=== PATIENT | female | born 1975 | race Caucasian/White ===

== ENCOUNTER 2016-09-19 09:02 | Emergency (ER) | payer OTHER ==
[~2016-09-19] VITALS: Ht 162.6 cm; Wt 62.6 kg
[~2016-09-19 09:02] MED LIST: ALPRAZOLAM; AMOXICILLIN; ASPIRIN EC81 M1; BACTROBAN CREAM30 G1 TOP; CIPROFLOXACIN500 M1 PO; COMPAZINE5 MG PO; FLEXERIL PO; IBUPROFEN 200200 M1 PO; IBUPROFEN 600600 M1 PO; LIDOCAINE VISC100 ML MM; MEDROLDOSEPACK PO; NORCO 5-325 TA1 EACH PO; PERCOCET 5-3251 EACH PO; PREDNISONE 20 M20 MG PO; SEROQUEL; VALTREX1000 MG PO; XANAX 0.25 MG0.25 MG PO; ZOFRAN ODT4 MG PO
[2016-09-19 09:05] VITALS: BP 130/87
[2016-09-19] MEDS ORDERED: TYLENOL PM EX-1 EACH PO (09:26)
[2016-09-19 09:29] LABS: URINE BILIRUBIN NEGATIVE (Negative); URINE BLOOD NEGATIVE (Negative); URINE COLOR YELLOW; URINE GLUCOSE-RANDOM* NEGATIVE (Negative); URINE KETONES NEGATIVE (Negative); URINE NITRITE NEGATIVE (Negative); URINE PROTEIN (DIPSTICK) NEGATIVE (Negative); URINE SPECIFIC GRAVITY 1.025 (1.003-1.035); URINE UROBILINOGEN 0.2 E.U./dl (0.2-1.0)
[2016-09-19 09:37] LABS: ABSOLUTE NEUTROPHILS 6.1 thou/uL (1.4-8.2); BASOPHILS 0.9 % (0.0-2.0); EOSINOPHILS 0.9 % (0.0-3.0); HEMATOCRIT 43.3 % (37.0-47.0); HEMOGLOBIN 14.9 gm/dL (12.0-15.0); LYMPHOCYTES 30.3 % (24.0-44.0); MCH 29.1 pg (26.0-34.0); MCHC 34.3 % (28.0-37.0); MONOCYTES 6.3 % (1.0-8.0); PLATELET COUNT 212 thou/uL (150-400); POLYS 61.6 % (36.0-66.0); RDW 12.9 % (10.5-14.5); WBC 9.8 thou/uL (4.0-11.0)
[2016-09-19 09:38] LABS: MANUAL DIFF NO
[2016-09-19 09:44] LABS: AMP/METHAMP POSITIVE (Negative); BARBITURATES Negative (Negative); BENZODIAZEPINES Negative (Negative); COCAINE Negative (Negative); METHADONE Negative (Negative); OPIATES Negative (Negative); PCP Negative (Negative); THC Negative (Negative)
[2016-09-19 09:49] LABS: CALCIUM 9.1 mg/dL (8.5-10.1); CREATININE 0.8 mg/dL (0.6-1.3); POTASSIUM 4.1 mmol/L (3.5-5.1)
[2016-09-19 09:53] LABS: TOTAL BILIRUBIN 0.2 mg/dL (<0.1-1.0); TOTAL PROTEIN 7.6 g/dL (6.4-8.2)
== END 2016-09-19 10:01 | disposition home or self-care (01) ==
LOC: ER 09:02
PROVIDERS: Physician Assistant
DX: N95.1 Menopausal and female climacteric states (principal); F32.9 Major depressive disorder, single episode, unspecified; E16.2 Hypoglycemia, unspecified; Z71.51 Drug abuse counseling and surveillance of drug abuser; Z90.89 Acquired absence of other organs; Z88.2 Allergy status to sulfonamides; Z87.891 Personal history of nicotine dependence

== ENCOUNTER 2017-02-02 19:36 | Emergency (ER) | payer OTHER ==
[~2017-02-02] VITALS: Ht 162.6 cm; Wt 61.7 kg
[~2017-02-02 19:36] MED LIST changes: +TYLENOL PM EX-1 EACH PO
[2017-02-02] MEDS ORDERED: MOBIC15 MG PO (20:54)
[2017-02-02] MEDS ORDERED: ZPAK PO (20:54)
[2017-02-02 21:21] VITALS: BP 108/68
== END 2017-02-02 21:22 | disposition home or self-care (01) ==
LOC: ER 19:36
DX: J18.9 Pneumonia, unspecified organism (principal); F32.9 Major depressive disorder, single episode, unspecified; Z90.89 Acquired absence of other organs; Z88.2 Allergy status to sulfonamides; Z87.891 Personal history of nicotine dependence

== ENCOUNTER 2017-02-06 10:09 | Emergency (ER) | payer OTHER ==
[~2017-02-06] VITALS: Ht 162.6 cm; Wt 61.7 kg
--- NOTE | ~2017-02-06 | EKG ---
[place] [address] [place] [address] ELECTROCARDIOGRAM REPORT Name: RENARD BRADLEY 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1975 Requested By: Alejandra Garza Order Number: [id number] MD: Gilberto Solis Measurements Intervals [place] Rate: 86 P: 72 TX: 118 QRS: 66 QRSD: 85 T: 52 QT: 365 QTc: 437 Interpretive Statements Sinus rhythm Biatrial enlargement Left ventricular hypertrophy Compared to ECG 12/05/2011 18:31:49 No significant change was found Electronically Signed On 02-07-2017 8:38:09 CDT by Gilberto Solis [email or web address] <ELECTRONICALLY SIGNED> By: Gilberto Solis MD, [facility] 02/07/17 0838 [id number] Gilberto Solis MD, FACC /EPI
[~2017-02-06 10:09] MED LIST changes: +MOBIC15 MG PO; +ZPAK PO
[2017-02-06 11:00] LABS: ABSOLUTE NEUTROPHILS 6.1 thou/uL (1.4-8.2); EOSINOPHILS 3.1 % (0.0-3.0); HEMATOCRIT 41.7 % (37.0-47.0); HEMOGLOBIN 14.4 gm/dL (12.0-15.0); LYMPHOCYTES 23.2 % (24.0-44.0); MANUAL DIFF NO; MCHC 34.5 g/dL (28.0-37.0); MONOCYTES 7.1 % (1.0-8.0); PLATELET COUNT 304 thou/uL (150-400); POLYS 65.6 % (36.0-66.0); RBC 4.97 mil/uL (4.20-5.00); RDW 12.5 % (10.5-14.5); WBC 9.3 thou/uL (4.0-11.0)
[2017-02-06 11:09] LABS: ANION GAP 7 mmol/L (7-16); BUN 16 mg/dL (7-18); CALCIUM 9.5 mg/dL (8.5-10.1); CHLORIDE 104 mmol/L (98-107); CO2 29 mmol/L (21-32); CREATININE 0.8 mg/dL (0.6-1.0); GLUCOSE 102 mg/dL (74-106); POTASSIUM 3.9 mmol/L (3.5-5.1); SODIUM 140 mmol/L (136-145)
[2017-02-06 11:16] LABS: ALBUMIN 3.5 g/dL (3.4-5.0); ALKALINE PHOSPHATASE 110 U/L (46-116); SGOT 17 U/L (15-37); SGPT 21 U/L (30-65); TOTAL BILIRUBIN 0.4 mg/dL (<0.1-1.0); TROPONIN-I < 0.04 ng/mL (<0.04-0.07)
[2017-02-06] MEDS ORDERED: DOXYCYCLINE 10100 MG PO (12:08)
[2017-02-06] MEDS ORDERED: DELTASONE20 MG PO (12:08)
[2017-02-06] MEDS ORDERED: GUAIFEN-CODEIN120 ML PO (12:09)
[2017-02-06 13:01] VITALS: BP 103/61
== END 2017-02-06 13:01 | disposition home or self-care (01) ==
LOC: ER 10:09
PROVIDERS: Physician Assistant
DX: J18.9 Pneumonia, unspecified organism (principal); R00.2 Palpitations; Z90.89 Acquired absence of other organs; F32.9 Major depressive disorder, single episode, unspecified; Z88.2 Allergy status to sulfonamides; Z87.891 Personal history of nicotine dependence

== ENCOUNTER 2018-06-30 11:08 | Emergency (ER) | payer OTHER ==
[~2018-06-30] VITALS: Ht 162.6 cm; Wt 59.4 kg
[~2018-06-30 11:08] MED LIST changes: +DELTASONE20 MG PO; +DOXYCYCLINE 10100 MG PO; +GUAIFEN-CODEIN120 ML PO
[2018-06-30] MEDS ORDERED: FLEXERIL PO (12:38)
[2018-06-30 12:50] VITALS: BP 107/75
== END 2018-06-30 12:50 ==
LOC: ER 11:08
DX: M62.830 Muscle spasm of back (principal); F32.9 Major depressive disorder, single episode, unspecified; Z87.891 Personal history of nicotine dependence; Z88.2 Allergy status to sulfonamides; Z90.49 Acquired absence of other specified parts of digestive tract

== ENCOUNTER 2020-09-29 07:38 | Emergency (ER) | payer OTHER ==
[~2020-09-29] VITALS: Ht 162.6 cm; Wt 61.2 kg
--- NOTE | ~2020-09-29 | EKG ---
[place] [address] 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
[2020-09-29] MEDS ORDERED: HYDROXYZINE PAM50 MG PO (07:54)
[2020-09-29 08:26] LABS: ABSOLUTE NEUTROPHILS 5.5 thou/uL (1.4-8.2); BASOPHILS 1.2 % (0.0-2.0); EOSINOPHILS 1.4 % (0.0-3.0); HEMATOCRIT 42.8 % (37.0-47.0); HEMOGLOBIN 14.6 gm/dL (12.0-15.0); LYMPHOCYTES 29.4 % (24.0-44.0); MCH 29.1 pg (26.0-34.0); MCHC 34.2 g/dL (28.0-37.0); MCV 85.2 fL (80.0-100.0); MONOCYTES 6.6 % (1.0-8.0); PLATELET COUNT 220 thou/uL (150-400); POLYS 61.4 % (36.0-66.0); RBC 5.02 mil/uL (4.20-5.00); WBC 8.9 thou/uL (4.0-11.0)
[2020-09-29 08:39] LABS: ANION GAP 8 mmol/L (7-16); BUN 16 mg/dL (7-18); CALCIUM 9.6 mg/dL (8.5-10.1); CHLORIDE 102 mmol/L (98-107); CO2 25 mmol/L (21-32); CREATININE 0.9 mg/dL (0.6-1.0); GLUCOSE 107 mg/dL (74-106); POTASSIUM 3.9 mmol/L (3.5-5.1); SODIUM 135 mmol/L (136-145)
[2020-09-29 08:49] LABS: ALBUMIN 4.1 g/dL (3.4-5.0); DIRECT BILIRUBIN < 0.1 mg/dL (<0.1-0.2); SGOT 18 U/L (15-37); SGPT 34 U/L (14-59); TOTAL BILIRUBIN 0.5 mg/dL (0.2-1.0); TOTAL PROTEIN 7.5 g/dL (6.4-8.2); TROPONIN-I <0.06 ng/mL (<0.06)
[2020-09-29] MEDS ORDERED: GUAIFEN-CODEINE10 ML PO ×3 (10:09→10:15)
[2020-09-29 10:40] VITALS: BP 116/73
--- NOTE | 2020-10-01 07:15 | EKG ---
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1975 Requested By: June Camacho Order Number: [id number] MD: Stalin Villanueva Measurements Intervals [place] Rate: 70 P: 62 NE: 136 QRS: 67 QRSD: 79 T: 61 QT: 384 QTc: 415 Interpretive Statements Age not entered, assumed to be 51 years old for purpose of ECG interpretation Sinus rhythm Left atrial enlargement J Point elev, probable normal early repol pattern Compared to ECG 02/06/2017 10:18:18 ST (T wave) deviation now present Left ventricular hypertrophy no longer present Electronically Signed On 10-01-2020 7:14:53 DRAWER FITTER by Stalin Villanueva [email or web address] <ELECTRONICALLY SIGNED> By: Stalin Villanueva MD, FACC 10/01/20 0714 08 0800 Stalin Villanueva MD, [facility] /EPI
== END 2020-09-29 10:41 | disposition home or self-care (01) ==
LOC: ER 07:38
PROVIDERS: Emergency Medicine
DX: U07.1 COVID-19 (principal); F32.9 Major depressive disorder, single episode, unspecified; Z90.49 Acquired absence of other specified parts of digestive tract; Z79.899 Other long term (current) drug therapy; Z88.2 Allergy status to sulfonamides; Z87.891 Personal history of nicotine dependence